=== PATIENT | female | born 1980 | race Caucasian/White ===

== ENCOUNTER 2017-06-21 17:16 | Emergency (ER) | payer OTHER ==
[~2017-06-21] VITALS: Ht 162.6 cm; Wt 58.4 kg
[2017-06-21 17:25] VITALS: BP 120/74; PULSE 86; RESP 16; O2SAT 98
--- NOTE | 2017-06-21 18:04 | ED.REPORT ---
HPI-General Illness Date of Service Jun 21, 2017 ED Provider: Toni Gambino MD The patient is a 36 year old female with a history of fibromyalgia, migraines, and seizures presenting to the ED complaining of ipomy-mlbck-[id number] dental pain onset 1 week ago. She describes the pain as 10/10 in severity, constant, throbbing, and sensitive to cold. Denied symptoms including fever, chills, vision changes, headache, nausea, or vomiting. There are no other pertinent complaints. Nursing Notes Stated Complaint: TOOTH PAIN Chief Complaint: Dental Nursing Notes Reviewed: Yes Allergies: Coded Allergies: Penicillins (Verified Allergy, Unknown, 06/21/17) mother is allergic alcohol (Verified Adverse Reaction, Severe, vomiting, 06/21/17) hydrocodone (Verified Adverse Reaction, Severe, migraines, 06/21/17) Scheduled Clindamycin (Clindamycin) 150 Mg Capsule 450 MG PO TID General Time Seen by MD: 18:04 Chief Complaint Other (right-sided dental pain) Hx Obtained From: Patient Arrived By: Walk-in Sudden in Onset?: Yes Onset Occurred: 1 week ago Symptom Duration: Since onset Location: : Mouth Quality: Throbbing Radiation: : Does not radiate Severity: Current: Pain level 10 out of 10 Severity: Maximum: Pain level 10 out of 10 Associated with: Denies: Fever, Headache, Nausea, Vomiting Exacerbated by: Drinking (cold liquids) Recent Healthcare: No recent doctor visit, No recent hospitalization Similar Sx Previous: Yes Past Medical History Past Medical History Fibromyalgia Migraines Seizures Past Surgical History [place] teeth Smoking History Current Every Day Smoker Social History Alcohol Use: Denies alcohol use Drug Use: Denies drug use Ambulatory Status Independent Review of Systems lower-right dental pain Full Review of Systems Constitutional: Denies: Chills, Fever Eyes: Denies: Visual loss bilateral Respiratory: Denies: Shortness of breath Cardiovascular: Denies: Chest pain GI: Denies: Abdominal pain, Nausea, Vomiting Musculoskeletal: Denies: Back pain Neurologic: Denies: Headache Complete sys rev & neg: except as marked. Physical Exam Nursing note and vitals reviewed. Constitutional: Well-developed, well-nourished. Not diaphoretic. Head: Normocephalic and atraumatic. Mouth/Throat: Oropharynx is clear and moist. No oropharyngeal exudate. Poor dentition. No signs of periapical abscess. No trismus. Pain primarily to molars on lower right. Eyes: EOM are normal. Pupils are equal, round, and reactive to light. Neck: Supple, no tracheal deviation. Cardiovascular: Normal rate, regular rhythm. Equal and intact distal pulses throughout. Pulmonary/Chest: Effort normal and breath sounds normal. No respiratory distress. Abdominal: Soft. No distension. There is no tenderness, rebound, or guarding. Bowel sounds present. Musculoskeletal: Range of motion grossly intact, moving all extremities. No edema or tenderness appreciated. Neurological: AOx3. Grossly nonfocal exam. Strength and sensation intact and equal to bilateral upper and lower extremities. Skin: Warm and dry, no rashes or pallor appreciated. Psychiatric: Appropriate mood and affect. Behavior appears normal. Vital Signs Vital Signs Date Time Temp Pulse Resp B/P Pulse Ox O2 Delivery O2 Flow Rate FiO2 06/21/17 17:25 36.6 86 16 120/74 98 Room Air Initial VS: Reviewed Procedures Dental Nerve Block Time: 19:01 Block Performed by: ED physician Consent / Setup / Site Prep: Informed consent provided, Consent from patient Anesthesia: Inferior alveolar block Local Anesthesia: Bupivacaine 0.5%, 2cc Post-Procedure / Complications: No complications, Condition improved, Tolerated procedure well, Patient stable Re-Eval/Medical Decision Med Decision/Clinical Course 36-year-old female presenting to the ED for evaluation of dental pain. Afebrile , nontoxic appearing. No trismus. No signs of periapical abscess. Patient requested a dental block; performed as per above without complication. Discussed risks and benefits prior to the procedure. Consent was obtained. No signs of skin/soft tissue infection of the face. No headache. Plan discharge with careful return precautions, antibiotics, and outpatient dental follow-up in the next 1-2 days. Patient agreeable to the plan as stated, no further questions. Time of Eval: 19:00 Re-Evaluation/Progress Note: Patient rechecked. Given dental block. Discussed plan for discharge. All questions addressed at this time. Counseled Regarding: Diagnosis, Need for follow-up, When/why to return to ED Discharge & Departure Primary Impression: Pain, dental Disposition: Home Discharge Condition All VS Reviewed: Yes Condition: Improved Patient Instructions: Clindamycin (By mouth), Toothache (ED) Additional Instructions: Thank you for allowing us to be a part of your care in the ED today. You were given a dental block for your pain today. I do not think that there is an emergent cause for your symptoms today that would require admission to the hospital or further workup at this time, however it is very important that you follow up with a dentist in the next 1 to 2 days. Take the antibiotics as prescribed. Please schedule a follow up appointment with your primary care physician tomorrow for a recheck. Please return to the emergency department for any new or worsening symptoms including any nausea, vomiting, abdominal pain, shortness of breath, chest pain , one sided weakness/numbness, fevers, or chills, or if there's anything else of concern to you. Referrals: [facility] [employer] Attestation Portions of this note were transcribed by Alexi White. I, Dr. Gambino personally performed the history, physical exam and medical decision-making; I reviewed and confirmed the accuracy of the information in the transcribed note. Signed by: Melinda Rodarte, 06/21/2017 copies to: [facility] oTni Gambino MD Jun 21, 2017 18:04 Jun 21, 2017 18:57
[2017-06-21] MEDS ORDERED: Bupivacaine-MPF 0.5% 30 mL Inj ONE (18:26)
[2017-06-21] MEDS ORDERED: CLIN-77 PO (19:24)
[2017-06-21 19:47] VITALS: BP 122/78; PULSE 82; RESP 21; O2SAT 98
== END 2017-06-21 19:48 | disposition home or self-care (01) ==
LOC: SED 17:16
DX: K08.89 Other specified disorders of teeth and supporting structures (principal); G43.909 Migraine, unspecified, not intractable, without status migrainosus; M79.7 Fibromyalgia; F17.200 Nicotine dependence, unspecified, uncomplicated; Z88.0 Allergy status to penicillin; Z88.5 Allergy status to narcotic agent; Z91.048 Other nonmedicinal substance allergy status
CPT/HCPCS: 64400; 96372; 99283; J1885